=== PATIENT | female | born 1995 | race Caucasian/White ===

== ENCOUNTER → 2022-10-18 | Outpatient (CLI) | payer OTHER ==
--- NOTE | 2022-10-18 16:47 | Diagnostic Imaging Report ---
INDICATION: TECHNIQUE: Multiple real-time grayscale images were obtained over the gravid uterus. COMPARISON: None FINDINGS: Biometrical measurements are as follows: Biparietal 4.16 cm, age 18 weeks 5 days. Head circumference 17.19 cm, age 19 weeks 6 days. Abdominal circumference 15.36 cm, age 20 weeks 4 days. Femur length 3.32 cm, age 20 weeks 3 days. Sonographic estimate age: 20 weeks 0 days. Sonographic estimated date of delivery: 03/07/2023. Estimated Weight: 347 gm (+/- 51 gm). LMP percentile: 33%. heart rate: 153 beats per minute. number: 1 of 1. FINDINGS: Single live intrauterine in breech position measuring at 20 weeks and 0 days with an CHRISTA of 03/07/2023 which is concordant with dates. Amniotic fluid shows an KRIS of 8.7 cm. The placenta is posterior and normal in appearance. No kathie-gestational hemorrhage. No placenta previa. The heart rate is 153 bpm. The cervix is normal measuring 4.2 cm in length. The cord insertion, LVOT, RVOT, four-chamber heart, CSP, lateral ventricles, cisterna magna, spine, kidneys, diaphragm, male gender. IMPRESSION: Single live intrauterine in breech presentation measuring at 20 weeks and 0 days with an CHRISTA of 03/07/2023 which is within normal limits. No evidence of abnormalities based on the anatomical evaluation listed above. Dictated by: Dictated on workstation # [id number]
== END ==
LOC: RAD 12:00
PROVIDERS: ATTEND Nurse Practitioner Women's Health
DX: O32.1XX0 Maternal care for breech presentation, not applicable or unspecified (principal); Z3A.20 20 weeks gestation of pregnancy
CPT/HCPCS: 76805

== ENCOUNTER 2023-02-26 06:30 | Inpatient (IN) | payer OTHER ==
[2023-02-26] VITALS (51 sets, daily range): BP systolic 93–126; BP diastolic 52–84
[~2023-02-26] VITALS: Ht 172.7 cm; Wt 69.7 kg
[2023-02-26] MEDS ORDERED: LIDOCAINE/EPI 2% 1:200,00 (XYLOCAINE) 20 ML VIAL INJ PRN (06:45)
[2023-02-26] MEDS: D5 LR IV SOLUTION 1,000 ML IV SCH ×2 (07:49→11:39)
--- NOTE | 2023-02-26 08:05 | History & Physical-OB ---
OB - Chief Complaint & HPI Date/Time Date of Admission: Date of Admission: Feb 26, 2023 at 06:31 Date seen by a Provider: Feb 26, 2023 Time Seen by a Provider: 07:55 Chief Complaint/History OB-Reason for Admission/Chief: Induction of Labor Hx : 1 Hx Para: 0 Expected Date of Delivery: Mar 03, 2023 Gestational Age in Weeks: 39 Gestational Age in Days: 2 Admission Nurse Assessment Rev: Yes Other A pos Antibody neg RI RPR NR HBsAg NR HIV NR GC neg GBS neg Allergies and Home Medications Allergies Coded Allergies: No Known Drug Allergies (Unverified , 02/26/23) Patient Home Medication List Home Medication List Reviewed: Yes OB - History Hx of Present Care: Yes Ultrasounds: Normal mid trimester US Obstetrical Complications: None Medical Complications: None Patient Past Medical History nc OB - Admission Exam Physical Exam HEENT: NCAT Heart: Rhythm Normal Lungs: Clear Abdomen: Gravid Extremities: Normal Reflexes: Normal Cervical Dilatation: 2cm Effacement: 100% Station: 0 Membranes: Intact Heart Rate: 130's Accelerations: Accelerations Present Decelerations: No Decelerations Short Term Variability: Present [facility] Variability: Average (6-25) Contractions on Admission: 6-10 Minutes Apart Intensity: Mild Krause Scoring Tool (Modified) Dilation (cm): 1-2cm (1) Effacement (%): 80-100% (3) Descent/Station: -1,0 (2) Cervix Consistency: Soft (2) Cervix Position: Middle/Mid-Position (1) Krause Score: 8 OB - Assessment/Plan/Diagnosis Assessment Assessment: induction of labor Admission Dx 27 yo @ 39 weeks GBS neg Elective IOL Admission Status: Inpatient Order (span 2 midnights) Reason for Inpatient Admission: IOL at 39 weeks Plan Plan: Induction Induction Method: ANDREA MOREIRA DO Feb 26, 2023 08:05
[2023-02-26 08:14] LABS: BASOPHILS # (AUTO) 0.1 10^3/uL (0.0-0.1); BASOPHILS % (AUTO) 1 % (0-10); EOSINOPHILS % (AUTO) 1 % (0-10); HEMATOCRIT 35 % (35-52); LYMPHOCYTES # (AUTO) 1.6 10^3/uL (1.0-4.0); LYMPHOCYTES % (AUTO) 19 % (12-44); MEAN CORPUSCULAR HEMOGLOBIN 31 pg (25-34); MEAN CORPUSCULAR HGB CONC 34 g/dL (32-36); MEAN CORPUSCULAR VOLUME 90 fL (80-99); MEAN PLATELET VOLUME 9.5 fL (9.0-12.2); MONOCYTES # (AUTO) 0.5 10^3/uL (0.0-1.0); MONOCYTES % (AUTO) 6 % (0-12); NEUTROPHILS # (AUTO) 6.5 10^3/uL (1.8-7.8); NEUTROPHILS % (AUTO) 74 % (42-75); PLATELET COUNT 244 10^3/uL (130-400); WHITE BLOOD COUNT 8.8 10^3/uL (4.3-11.0)
[2023-02-26] MEDS ORDERED: LACTATED RINGERS 1,000 ML IV SCH (08:15)
[2023-02-26] MEDS: OXYTOCIN PRE-MIX DRIP 500 ML IV SCH ×2 (08:21→16:36)
[2023-02-26] MEDS ORDERED: fentaNYL 2 mcg/ml BUPIVA 0.125 100 ML ONE (08:37)
[2023-02-26] MEDS ORDERED: fentaNYL INJ 100 MCG/2 ML AMP ONE (09:10)
[2023-02-26] MEDS ORDERED: BUPIVACAINE 0.25% 10 ML (SENSORCAINE) VIAL ONE (09:10)
[2023-02-26] MEDS ORDERED: LACTATED RINGERS 1,000 ML IV ONE (10:00)
[2023-02-26] MEDS ORDERED: fentaNYL 2 mcg/ml BUPIVA 0.125 100 ML EPI SCH (10:00)
[2023-02-26] MEDS ORDERED: CATHETER FLUSH 10 ML SYR IV PRN (10:00)
[2023-02-26] MEDS ORDERED: diphenhydrAMINE 50 MG/ML INJ (BENADRYL) IV PRN (10:00)
[2023-02-26] MEDS ORDERED: ONDANSETRON 4 MG/2 ML (SDV) Z0FRAN IV PRN (10:00)
[2023-02-26] MEDS ORDERED: NALOXONE 0.4 MG/ML 1 ML (NARCAN) VIAL IV PRN ×2 (10:00→16:30)
[2023-02-26] MEDS ORDERED: PREN-164 PO (10:29)
[2023-02-26] MEDS ORDERED: DOCU-143 PO (10:30)
[2023-02-26] MEDS: CATHETER FLUSH 10 ML SYR IV SCH ×2 (14:00→22:00)
[2023-02-26] MEDS ORDERED: HYDROcodone/APAP 5 MG/325 MG (LORTAB) TAB PO PRN (16:30)
[2023-02-26] MEDS ORDERED: DIBUCAINE 1% OINTMENT 28 GM TUBE TOP PRN (16:30)
[2023-02-26] MEDS ORDERED: OXYTOCIN PRE-MIX DRIP 500 ML IV SCH (16:30)
[2023-02-26] MEDS ORDERED: TETANUS,DIPTH,PERTUSS P/F (BOOSTRIX) 0.5 ML VIAL IM ONE (16:30)
[2023-02-26] MEDS ORDERED: WITCH HAZEL(TUCKS) 40 EA JAR TOP PRN (16:30)
[2023-02-26] MEDS ORDERED: MEASLES,MUMPS,RUBELLA 1 EA INJ SQ ONE (16:30)
[2023-02-26] MEDS ORDERED: BENZOCAINE/MENTHOL (DERMOPLAST) 56 ML CAN TP PRN (16:30)
--- NOTE | 2023-02-26 16:36 | OB Labor & Delivery Record ---
L&D History Date of Service Date of Service: Feb 26, 2023 History Expected Date of Delivery: Mar 03, 2023 Gestational Age in Weeks: 39 Hx : 1 Hx Para: 0 Complications Events: Routine care Operative Indications (Cesarea: N/A-Vaginal Delivery Intrapartal Events: Extnded Bradycardia L&D Stage1 Stage One Onset of Labor - Date: Feb 26, 2023 Monitors and Tracing Monitor Mode: External Heart Rate: 155 Station: 0 Residential Variability: Average (6-10) Short Term Variability: Present Presentation: Vertex Vital Signs VS - Last 72 Hours, by Label 02/26/23 02/26/23 02/26/23 02/26/23 07:14 07:15 09:26 09:29 Temp 36.5 36.5 Pulse 89 89 66 78 Resp 18 18 18 18 B/P (MAP) 108/65 (79) 124/77 (93) 125/84 (98) Pulse Ox 98 98 100 99 O2 Delivery Room Air Room Air Room Air Room Air 02/26/23 02/26/23 02/26/23 02/26/23 09:32 09:35 09:38 09:41 Pulse 75 77 68 64 Resp 18 18 18 18 B/P (MAP) 118/78 (91) 115/68 (84) 114/72 (86) 115/71 (86) Pulse Ox 98 99 97 97 O2 Delivery Room Air Room Air Room Air Room Air 02/26/23 02/26/23 02/26/23 02/26/23 09:44 09:47 09:50 09:53 Pulse 80 68 66 63 Resp 18 18 18 18 B/P (MAP) 110/64 (79) 105/76 (86) 114/76 (89) 111/71 (84) Pulse Ox 97 97 98 98 O2 Delivery Room Air Room Air Room Air Room Air Rupture of Membranes Spontaneous Ruture of Membrane: No Amniotic Membrane Rupture Time: 0756 Amniotic Membrane Fluid Desc.: Meconium Stained Vaginal Bleeding Description: Normal Show Induction/Anesthesia Epidural Cath Placement - Time: 924 Progress/Notes Patient admitted for IOL at 39.6. AROM performed followed by pitocin augmentation. She progressed after her epidural to complete and + 2 station. L&D Stage2 Stage Two Stage II Date: Feb 26, 2023 Monitors and Tracing Monitor Mode: External Heart Rate: 155 Monitor Accelerations: Uniform Monitor Decelerations: Variable Short Term Variability: Present Position: Right Occiput Anterior Presentation: Vertex Signs of Distress by FHT Signs of Distress Patient progressed infant to +3 station, when prolonged bradycardia occurred in the 70-80s, low vacuum extraction performed in typical fashion by placing suction cup over flexion point. Applying 550mg Hg to the handpiece, and after RML is performed extending head over perineum when vacuum is immediately released and the remainder of the delivery occurred without difficulty. Cord Descript/Complications Cord Vessel Description: 3 Vessels Delivery Type Infant Delivery Method: Low Vacuum Extraction Anterior Shoulder: Left Episiotomy/Perineal Laceration Laceraction(s)/Extensions: Yes Episiotomy Description: Right Mediolateral Degree (describe repair) RML repaired using 3-0 and 2-0 vicryl suture Condition of Infant Delivery 1 minute Comment: 7 5 minute Comment: 8 Notes Live male weight 5lbs 12 oz Condition of Condition of Infant: Living Exam: No Observed Abnormalities Resuscitation Resuscitation: Oxygen Blowby L&D Stage3 Stage Three Stage III Date: Feb 26, 2023 Pictocin Pitocin Administration mu/min: 2 Pitocin ml/hr: 2 Pitocin Administration Comment: 30 mu wide open after delivery of placenta Placenta Delivery Placenta Delivery: Spontaneous Delivery Summary Summary Estimated blood loss (mL): 350 Attending at delivery: Andrea Beebe DO Condition of Delivery Examined: Cervix Examined, Uterus Explored Post Hemorrhage: No Condition of Mother stable Condition of Infant (s) stable ANDREA BEEBE DO Feb 26, 2023 16:36
[2023-02-26] MEDS: IBUPROFEN 600 MG (MOTRIN) TAB PO SCH ×2 (16:50→23:06)
[2023-02-26] MEDS ORDERED: CATHETER FLUSH 10 ML SYR IV SCH (22:00)
[2023-02-26] MEDS: DOCUSATE SODIUM 100 MG (COLACE) CAP PO SCH (23:06)
[2023-02-27 03:15] VITALS: BP 102/59
[2023-02-27 05:56] LABS: BASOPHILS % (AUTO) 0 % (0-10); EOSINOPHILS # (AUTO) 0.1 10^3/uL (0.0-0.3); EOSINOPHILS % (AUTO) 1 % (0-10); HEMATOCRIT 35 % (35-52); LYMPHOCYTES # (AUTO) 2.3 10^3/uL (1.0-4.0); LYMPHOCYTES % (AUTO) 20 % (12-44); MEAN CORPUSCULAR HEMOGLOBIN 31 pg (25-34); MEAN CORPUSCULAR HGB CONC 34 g/dL (32-36); MEAN CORPUSCULAR VOLUME 92 fL (80-99); MEAN PLATELET VOLUME 9.3 fL (9.0-12.2); MONOCYTES # (AUTO) 0.5 10^3/uL (0.0-1.0); MONOCYTES % (AUTO) 5 % (0-12); NEUTROPHILS # (AUTO) 8.2 10^3/uL (1.8-7.8); NEUTROPHILS % (AUTO) 73 % (42-75); PLATELET COUNT 212 10^3/uL (130-400); WHITE BLOOD COUNT 11.2 10^3/uL (4.3-11.0)
[2023-02-27] MEDS: IBUPROFEN 600 MG (MOTRIN) TAB PO SCH ×2 (06:03→11:59)
[2023-02-27] MEDS ORDERED: PRENATAL VITAMIN 1 EA TAB PO SCH (07:00)
--- NOTE | 2023-02-27 07:23 | Postpartum Progress Note ---
Note Note Day # 1 Subjective: Patient is without complaints. Ambulating, voiding. Tolerating a regular diet without nausea or vomiting. Normal lochia. Pain is well controlled with oral pain medications. Objective: Physical Exam: General - Alert and oriented, no apparent distress Abdomen - Soft, appropriately tender to palpation, non-distended, fundus firm at umbilicus Extremities - no edema, negative Haroon's bilaterally Assessment: PPD 1 VAVD Acute blood loss anemia Plan: Routine care. Encourage breast feeding. Encourage ambulation. Ferrous sulfate supplementation. Plan for discharge today Vitals - Labs Vital Signs - I&O Vital Signs Date Time Temp Pulse Resp B/P (MAP) Pulse Ox O2 Delivery O2 Flow Rate FiO2 02/27/23 03:15 36.6 72 18 102/59 (73) 98 Room Air 02/26/23 23:06 36.6 63 18 98/59 (72) 98 Room Air 02/26/23 20:52 36.4 68 18 107/64 (78) Room Air 02/26/23 09:53 63 18 111/71 (84) 98 Room Air 02/26/23 09:50 66 18 114/76 (89) 98 Room Air 02/26/23 09:47 68 18 105/76 (86) 97 Room Air 02/26/23 09:44 80 18 110/64 (79) 97 Room Air 02/26/23 09:41 64 18 115/71 (86) 97 Room Air 02/26/23 09:38 68 18 114/72 (86) 97 Room Air 02/26/23 09:35 77 18 115/68 (84) 99 Room Air 02/26/23 09:32 75 18 118/78 (91) 98 Room Air 02/26/23 09:29 78 18 125/84 (98) 99 Room Air 02/26/23 09:26 66 18 124/77 (93) 100 Room Air I & O 02/27/23 07:00 Intake Total 2000 ml Output Total 1300 ml Balance 700 ml Labs Laboratory Tests 02/26/23 07:40: White Blood Count 8.8, Red Blood Count 3.92, Hemoglobin 12.0, Hematocrit 35, Mean Corpuscular Volume 90, Mean Corpuscular Hemoglobin 31, Mean Corpuscular Hemoglobin Concent 34, Red Cell Distribution Width 13.1, Platelet Count 244, Mean Platelet Volume 9.5, Immature Granulocyte % (Auto) 0, Neutrophils (%) (Auto) 74, Lymphocytes (%) (Auto) 19, Monocytes (%) (Auto) 6, Eosinophils (%) (Auto) 1, Basophils (%) (Auto) 1, Neutrophils # (Auto) 6.5, Lymphocytes # (Auto) 1.6, Monocytes # (Auto) 0.5, Eosinophils # (Auto) 0.0, Basophils # (Auto) 0.1, Immature Granulocyte # (Auto) 0.0, Syphilis Total Antibody Negative 02/27/23 05:50: White Blood Count 11.2H, Red Blood Count 3.82, Hemoglobin 12.0, Hematocrit 35, Mean Corpuscular Volume 92, Mean Corpuscular Hemoglobin 31, Mean Corpuscular Hemoglobin Concent 34, Red Cell Distribution Width 13.3, Platelet Count 212, Mean Platelet Volume 9.3, Immature Granulocyte % (Auto) 0, Neutrophils (%) (Auto) 73, Lymphocytes (%) (Auto) 20, Monocytes (%) (Auto) 5, Eosinophils (%) (Auto) 1, Basophils (%) (Auto) 0, Neutrophils # (Auto) 8.2H, Lymphocytes # (Aut o) 2.3, Monocytes # (Auto) 0.5, Eosinophils # (Auto) 0.1, Basophils # (Auto) 0.0, Immature Granulocyte # (Auto) 0.0 ANDREA BEEBE DO Feb 27, 2023 07:23
--- NOTE | 2023-02-27 07:25 | Discharge Inst-Women's Service ---
Discharge Inst-Women's Serv Depart Medication/Instructions New, Converted or Re-Newed RX: Transmitted to Pharmacy Final Diagnosis PPD NVD Problems Reviewed?: Yes Consults/Follow Up Additional Follow Up: Yes Orders/Referrals Dr. Beebe in 6 weeks Activity Activity: Activity as Tolerated Driving Instructions: No Driving for 1 Week NO SMOKING: NO SMOKING Nothing Inside Vagina: No Douching, No [place], No Tampons Diet Discharge Diet: No Restrictions Symptoms to Report to : Bleeding Excessive, Pain Increased, Fever Over 101 Degrees F, Vaginal Bleeding Increase, Questions/Concerns For Any Problems or Questions: Contact Your Physician ANDREA BEEBE DO Feb 27, 2023 07:25
[2023-02-27] MEDS ORDERED: DOCU100C37 PO (07:26)
[2023-02-27] MEDS ORDERED: DIBU30OI TOP (07:26)
[2023-02-27] MEDS ORDERED: BENZ78AE5 TP (07:26)
[2023-02-27] MEDS ORDERED: IBUP-844 PO (07:26)
[2023-02-27] MEDS ORDERED: ACHD5005 PO (07:26)
[2023-02-27] MEDS ORDERED: FERROUS SULF 325 MG (IRON) TAB PO SCH (09:00)
[2023-02-27 10:00] VITALS: BP 109/56
[2023-02-27] MEDS: DOCUSATE SODIUM 100 MG (COLACE) CAP PO SCH (10:17)
--- NOTE | 2023-02-27 12:22 | Anesthesia-Regional Post-Op ---
Regional Patient Condition Mental Status: Alert, Oriented x3 Circulation: Same as Pre-Op Headache: Absent Sensation: Full Recovery Motor Block: Absent Post Op Complications Complications None Follow Up Care/Instructions Patient Instructions None needed. Anesthesia/Patient Condition Patient is doing well, no complaints, stable vital signs, no apparent adverse anesthesia problems. No complications reported per nursing. GENNA CARDENAS CRNA Feb 27, 2023 12:22
[2023-02-27 12:30] VITALS: BP 109/56
== END 2023-02-27 12:30 | disposition home or self-care (01) | DRG 807 ==
LOC: LDRP 06:31
PROVIDERS: ADMIT Obstetrics & Gynecology; ATTEND Obstetrics & Gynecology
PROC: 10D07Z6 Extraction of Products of Conception, Vacuum, Via Natural or Artificial Opening (ICD-10-PCS; principal; 2023-02-26)
PROC: 0W8NXZZ Division of Female Perineum, External Approach (ICD-10-PCS; 2023-02-26)
PROC: 10907ZC Drainage of Amniotic Fluid, Therapeutic from Products of Conception, Via Natural or Artificial Opening (ICD-10-PCS; 2023-02-26)
DX: O76 Abnormality in fetal heart rate and rhythm complicating labor and delivery (principal); Z37.0 Single live birth; Z3A.39 39 weeks gestation of pregnancy
CPT/HCPCS: 36415; 85025; 86780; 86850; 86900; 86901